=== PATIENT | female | born 1995 ===

== ENCOUNTER 2023-05-07 18:32 | Inpatient (IN) | payer OTHER ==
[2023-05-07] MEDS ORDERED: Sodium Chloride 0.9% 1,000 ML IV ONE (18:37)
[2023-05-07 18:57] LABS: BASOPHILS ABSOLUTE AUTO 0.09 K/uL (0.00-0.20); BASOPHILS PERCENT AUTO 0.9 % (0.0-1.0); EOSINOPHILS ABSOLUTE AUTO 0.05 K/uL (0.00-0.45); EOSINOPHILS PERCENT AUTO 0.5 % (0.0-6.0); HEMOGLOBIN 16.3 g/dL (12.0-16.0); IMMATURE GRAN ABSOLUTE AUTO 0.05 K/uL (0.00-0.05); IMMATURE GRAN PERCENT AUTO 0.5 % (0.0-0.4); LYMPHOCYTES ABSOLUTE AUTO 3.68 K/uL (1.00-4.80); LYMPHOCYTES PERCENT AUTO 37.6 % (24.0-44.0); MEAN CORPUSCULAR HEMOGLOBIN 33.8 pg (28.0-32.0); MEAN CORPUSCULAR HGB CONC 35.4 g/dL (32.0-36.0); MEAN CORPUSCULAR VOLUME 95.4 fL (83.0-99.0); MEAN PLATELET VOLUME 9.3 fL (9.4-12.3); MONOCYTES ABSOLUTE AUTO 0.52 K/uL (0.00-0.80); MONOCYTES PERCENT AUTO 5.3 % (0.0-8.0); NEUTROPHILS PERCENT AUTO 55.2 % (41.0-71.0); PLATELET COUNT,PLT 279 K/uL (150-400); RED BLOOD CELL COUNT 4.82 M/uL (4.10-5.30); WHITE BLOOD CELL COUNT,WBC 9.79 K/uL (3.9-11.3)
[2023-05-07] MEDS ORDERED: Iopamidol 755 MG/ML 500 ML Multipack Bottle IVPUSH STA (19:00)
[2023-05-07 19:11] LABS: INR 0.95 (0.86-1.11); PTT,PARTIAL THROMBOPLSTIN TIME 24.2 SEC (23.9-30.7)
[2023-05-07 19:23] LABS: ALANINE AMINOTRANSFERASE,ALT 72 IU/L (14-63); ALBUMIN 4.2 g/dL (3.4-5.0); ALKALINE PHOSPHATASE 48 U/L (46-116); ASPARTATE AMNIOTRANSFERASE,AST 70 IU/L (15-37); BILIRUBIN TOTAL 0.6 mg/dL (0.2-1.0); BLOOD UREA NITROGEN,BUN 7 mg/dL (7.0-18.0); CALCIUM 8.4 mg/dL (8.5-10.1); CHLORIDE,CL 105 mmol/L (98-107); CREATININE 1.2 mg/dL (0.6-1.0); EST CRCL DRUG DOSING (CG) 58.77 mL/min; GLUCOSE RANDOM 86 mg/dL (74-106); LIPASE 95 U/L (16-77); MAGNESIUM 2.2 mg/dL (1.8-2.4); POTASSIUM,K 3.7 mmol/L (3.5-5.1); PROTEIN TOTAL,TP 8.2 g/dL (6.4-8.2); SODIUM,NA 142 mmol/L (136-145)
[2023-05-07 19:25] LABS: ESTIMATED GFR 64 mL/min (>60); ETHANOL BLOOD MEDICAL 335 mg/dL
[2023-05-07] MEDS ORDERED: Diphtheria,Pertussis(Acell),Tetanus Vaccine 0.5 ML Syringe IM ONE (19:55)
[2023-05-07] MEDS ORDERED: fentaNYL 50 MCG/ML SDV IVPUSH ONE (19:57)
[2023-05-07] MEDS ORDERED: Sodium Chloride 0.9% 10 ML Syringe FLUSH PRN (20:45)
[2023-05-07] MEDS ORDERED: Sodium Chloride 0.9% 2.5 ML Syringe FLUSH PRN (20:45)
[2023-05-07] MEDS ORDERED: Acetaminophen 325 MG Tab PO SCH (20:45)
[2023-05-07] MEDS ORDERED: Metoclopramide 10 MG/2 ML SDV IVPUSH PRN (20:45)
[2023-05-07] MEDS ORDERED: Ondansetron 4 MG/2 ML SDV IVPUSH PRN (20:45)
[2023-05-07] MEDS ORDERED: Sodium Chloride 0.9% 20 ML SDV IV PRN (20:45)
[2023-05-07] MEDS ORDERED: diphenhydrAMINE 50 MG/ML SDV IVPUSH PRN (20:45)
[2023-05-07] MEDS ORDERED: HYDROmorphone 2 MG/ML Syringe IVPUSH PRN (20:45)
[2023-05-07] MEDS ORDERED: oxyCODONE 5 MG Tab PO PRN (20:47)
[2023-05-07] MEDS ORDERED: Lidocaine 1% 5 ML VIAL INJECT ONE (20:57)
[2023-05-07] MEDS ORDERED: Ketorolac 30 MG/ML SDV IVPUSH SCH (21:00)
[2023-05-07] MEDS ORDERED: LORazepam 2 MG/ML SDV IVPUSH PRN (21:14)
[2023-05-07] MEDS ORDERED: Bacitracin Oint 28.35 GM Tube TOP STA (21:18)
[2023-05-08] MEDS ORDERED: Lidocaine 1% 5 ML VIAL INJECT ONE (00:30)
[2023-05-08] MEDS: Ketorolac 30 MG/ML SDV IVPUSH SCH ×4 (00:39→18:15)
[2023-05-08] MEDS: Acetaminophen 325 MG Tab PO SCH ×4 (00:42→18:16)
[2023-05-08] MEDS: Lactated Ringers 1,000 ML IV SCH ×3 (01:50→18:16)
[2023-05-08] MEDS ORDERED: Naloxone 0.4 MG/ML SDV IVPUSH PRN (08:12)
[2023-05-08] MEDS ORDERED: Albuterol 0.083% 2.5 MG/3 ML Neb Soln NEB PRN (08:12)
[2023-05-08] MEDS ORDERED: droPERidol 5 MG/2 ML SDV IVPUSH PRN (08:12)
[2023-05-08] MEDS ORDERED: Ondansetron 4 MG/2 ML SDV IVPUSH PRN (08:12)
[2023-05-08] MEDS ORDERED: HYDROmorphone 1 MG/ML Syringe IVPUSH PRN (08:12)
[2023-05-08] MEDS ORDERED: fentaNYL 50 MCG/ML SDV IVPUSH PRN (08:12)
[2023-05-08] MEDS ORDERED: Morphine 2 MG/ML SYRINGE IVPUSH PRN (08:12)
[2023-05-08] MEDS ORDERED: Metoclopramide 10 MG/2 ML SDV IVPUSH PRN (08:12)
[2023-05-08] MEDS ORDERED: Lidocaine 1% with EPINEPHrine 1:100,000 50 ML MDV ONE (08:30)
[2023-05-08] MEDS ORDERED: Glycopyrrolate 0.2 MG/ML SDV ONE (08:35)
[2023-05-08] MEDS ORDERED: dexmedeTOMIDine HCl 200 MCG/2 ML SDV ONE (08:36)
[2023-05-08] MEDS ORDERED: Lidocaine 1% 5 ML VIAL ONE (08:37)
[2023-05-08] MEDS ORDERED: Propofol 200 MG/20 ML SDV ONE (08:45)
[2023-05-08] MEDS ORDERED: ceFAZolin 2 GM Vial ONE (08:46)
[2023-05-09] MEDS: Ketorolac 30 MG/ML SDV IVPUSH SCH ×3 (00:52→12:01)
[2023-05-09] MEDS: Acetaminophen 325 MG Tab PO SCH ×3 (00:54→12:00)
[2023-05-09] MEDS: Lactated Ringers 1,000 ML IV SCH (03:40)
[2023-05-09 05:23] LABS: APPEARANCE,URINE CLEAR; BILIRUBIN,URINE NEGATIVE (NEGATIVE); COLOR,URINE YELLOW; GLUCOSE,URINE NEGATIVE (NEGATIVE); KETONES,URINE 15 mg/dL (NEGATIVE); LEUKOCYTE ESTERASE,URINE TRACE (NEGATIVE); NITRITE,URINE NEGATIVE (NEGATIVE); OCCULT BLOOD,URINE NEGATIVE (NEGATIVE); PROTEIN,URINE NEGATIVE (NEGATIVE); UROBILINOGEN,URINE 0.2 EU/dL (<2.0)
[2023-05-09 05:33] LABS: AMPHETAMINES SCREEN, URINE NEGATIVE (CUTOFF=500); BARBITURATE SCREEN,URINE NEGATIVE (CUTOFF=200); BENZODIAZEPINES SCREEN,URINE PRESUMPTIVE POSITIVE (CUTOFF=150); BUPRENORPHINE SCREEN,URINE NEGATIVE (CUTOFF=10); METHADONE SCREEN, URINE NEGATIVE (CUTOFF=200); METHAMPHETAMINES SCREEN, URINE NEGATIVE (CUTOFF=500); OXYCODONE SCREEN,URINE NEGATIVE (CUT0FF=100); PCP SCREEN,URINE NEGATIVE (CUTOFF=25); THC SCREEN,URINE 20 NG/ML NEGATIVE (CUTOFF=50)
[2023-05-09 05:35] LABS: BACTERIA,URINE FEW (NEGATIVE); EPITHELIAL CELLS,URINE RARE (NONE-FEW); RBC,URINE 0-2 (0-2/HPF)
[2023-05-09] MEDS ORDERED: Bacitracin Oint 1 GM U/D Packet TOP ONE (10:09)
== END 2023-05-09 16:25 | disposition home or self-care (01) | DRG 200 ==
LOC: MW.ED 18:32 → MW.MS 21:00 → OBSVTOIN 05-08 14:41 → MW.MS 05-08 21:32
PROVIDERS: ADMIT Surgery; ATTEND Surgery
PROC: 0W9B30Z Drainage of Left Pleural Cavity with Drainage Device, Percutaneous Approach (ICD-10-PCS; principal; 2023-05-08 10:00)
DX: S27.0XXA Traumatic pneumothorax, initial encounter (principal); S22.42XA Multiple fractures of ribs, left side, initial encounter for closed fracture; S92.041A Displaced other fracture of tuberosity of right calcaneus, initial encounter for closed fracture; S61.011A Laceration without foreign body of right thumb without damage to nail, initial encounter; S30.811A Abrasion of abdominal wall, initial encounter; S90.414A Abrasion, right lesser toe(s), initial encounter; S00.83XA Contusion of other part of head, initial encounter; R31.9 Hematuria, unspecified; F10.229 Alcohol dependence with intoxication, unspecified; Z88.0 Allergy status to penicillin; Z93.3 Colostomy status; V87.7XXA Person injured in collision between other specified motor vehicles (traffic), initial encounter
CPT/HCPCS: 12001; 36415; 70450; 70450-26; 71045; 71045-26; 71046; 71046-26; 71260; 71260-26; 72125; 72125-26; 72128-26; 72131-26; 73610-26-RT; 73610-RT; 73620-26-RT; 73620-RT; 74177; 74177-26; 76000; 76000-26; 80053; 80305-QW; 80307; 81001; 83690; 83735; 84484; 84703; 85025; 85610; 85730; 86850; 86900; 86901; 90471; 90715; 93005; 93010; 96361; 96374; 96375; 96376; 97162-GP; 99285; 99285-25; A9270-GY; C1729; G0378; J0690; J1170; J1885; J2060; J2704; J3010; J3490; J7030; J7120; Q9967

== ENCOUNTER 2023-07-04 09:14 | Emergency (ER) | payer SELFPAY ==
[2023-07-04] MEDS ORDERED: Acetaminophen 500 MG Tab PO ONE (09:37)
[2023-07-04] MEDS ORDERED: Lidocaine 2% Viscous Solution 15 ML UD PO ONE (09:46)
[2023-07-04 10:22] LABS: CORONAVIRUS COVID-19 NAA NEGATIVE (NEGATIVE); INFLUENZA A NAA NEGATIVE (NEGATIVE); INFLUENZA B NAA POSITIVE (NEGATIVE)
== END 2023-07-04 10:51 | disposition home or self-care (01) ==
LOC: MW.ED 09:14
DX: J10.1 Influenza due to other identified influenza virus with other respiratory manifestations (principal); Z88.0 Allergy status to penicillin
CPT/HCPCS: 0240U; 71046; 87651; 99283; A9270